=== PATIENT | female | born 1980 | race American Indian/Alaskan Native ===

== ENCOUNTER 2016-10-05 05:29 | Emergency (ER) | payer SELFPAY ==
--- NOTE | 2016-10-05 08:13 | Emergency Department Report ---
HPI - General Chief Complaint: Skin/Abscess/Foreign Body Time Seen by Provider: 10/05/16 07:40 - HPI HPI: Patient is a 35-year-old female who presents to the ED complaining of throat pain and fever like symptoms stuck in her throat. Patient states she was using a pizza around 2:00 PM yesterday when she felt a part of her teeth broke off and swallowed it. Patient states about 2 episodes of vomiting after that to try to get the tooth out. Patient denies fevers/chills/nausea/chest pain/shortness of breath/difficulty breathing/abdominal pain. ED Past Medical Hx - Past Medical History Hx Psychiatric Treatment: Yes (Anxiety) Additional medical history: Morbid Obesity, - Surgical History Past Surgical History?: No - Social History Smoking Status: Current Every Day Smoker Substance Use Type: None - Medications Home Medications: Home Medications Medication Instructions Recorded Confirmed Last Taken Type Ibuprofen [Motrin] 600 mg PO Q8H PRN #20 tablet 10/05/16 Unknown Rx ED Review of Systems ROS: Stated complaint: FOREIGN OBJECT IN THROAT Other details as noted in HPI Constitutional: denies: chills, fever Eyes: denies: eye pain, eye discharge, vision change ENT: throat pain. denies: ear pain, dental pain, hearing loss Respiratory: denies: cough, shortness of breath, wheezing Cardiovascular: denies: chest pain, palpitations Endocrine: no symptoms reported Gastrointestinal: denies: abdominal pain, nausea, diarrhea, constipation Genitourinary: denies: urgency, dysuria, frequency, hematuria, discharge, abnormal menses Musculoskeletal: denies: back pain, joint swelling, arthralgia Skin: denies: rash, lesions Neurological: denies: headache, weakness, numbness, paresthesias, confusion, abnormal gait Psychiatric: denies: anxiety, depression Hematological/Lymphatic: denies: easy bleeding, easy bruising, swollen glands Physical Exam - Physical Exam Vital Signs: Vital Signs 10/05/16 06:05 Temperature 98 F Pulse Rate 101 H Respiratory 16 Rate Blood Pressure 140/67 Blood Pressure 140/67 [Left] O2 Sat by Pulse 100 Oximetry Physical Exam: GENERAL: Alert and oriented x3, no apparent distress, Normal Gait, atraumatic. HEAD: Head is normocephalic and a-traumatic. EYES: Extra ocular muscles are intact. Pupils are equal, round, and reactive to light and accommodation. EARS: symetrical, atraumatic, non tender, ear canal clear and moderate cerumen, tympanic membrance non inflamed. gross auditory nml bilaterally. NOSE: Nose symetrical, Nontender,Nares appeared normal. MOUTH:Mouth is well hydrated and without lesions. Tonsils nonerythematous or swollen, Uvula midline, Tongue not elevated. Mucous membranes are moist. Posterior pharynx clear, no exudate or lesions. Patent airways. No foreign objects visualized and throat. Partially missing tooth #2 no bleeding no gingival edema. NECK: Supple. Non edematous, No carotid bruits. No lymphadenopathy or thyromegaly. LUNGS: Symetrical with respiration, No wheezing, no rales or crackles, CTAB. HEART: S1, S2 present, regular rate and rhythm without murmur, no rubs, no gallops. ABDOMEN: No organomegaly was noted,Positive bowel sounds, soft, and non- distended. . Nontender to palpation on all Quadrants, NO CVA tenderness. EXTREMITIES/MUSCULOSKELETAL: No cyanosis, clubbing, rash, lesions or edema. Full ROM bilaterally. UE/LE Pulses 2+ bilaterally. LE and UE 5+ strength bilaterally NEUROLOGIC: No focal Deficit, Cranial nerves II through XII are grossly intact. No loss of sensation, PSYCHIATRIC: Mood is congruent with affect, denies suicidal or homicidal ideations. SKIN: Warm and dry, No lesions, No ulceration or induration present. ED Course Vital Signs 10/05/16 06:05 Temperature 98 F Pulse Rate 101 H Respiratory 16 Rate Blood Pressure 140/67 Blood Pressure 140/67 [Left] O2 Sat by Pulse 100 Oximetry ED Medical Decision Making - Radiology Data Radiology results: report reviewed, image reviewed FINAL REPORT PROCEDURE: XR NECK SOFT TISSUE TECHNIQUE: AP lateral view soft tissue neck HISTORY: Foreign body in throat. COMPARISON: No prior studies are available for comparison. FINDINGS: No prevertebral soft tissue swelling. Airway appears patent. Hyoid bone and thyroid cartilage. Indeterminate small 2 x 3 millimeter calcification or density seen near the posterior laryngeal area indeterminate as to foreign body versus thyroid cartilage related density seen on lateral view only If symptoms and or concern persists recommend CT scan neck without IV contrast IMPRESSION: As above Transcribed By: WEP Dictated By: DONIS GORDON MD Electronically Authenticated By: DONIS GORDON MD Signed Date/Time: 10/05/16 0858 - Medical Decision Making 34-year-old female presents ingestion of foreign object ED course: X-rays soft tissue of the neck ordered. X-ray shows inconclusive results CT of the neck ordered. CT of the neck shows no acute no foreign body objects in his neck. Discussed findings with patient. Vital signs are stable patient is in no acute or respiratory distress. Airway patent no obstruction seen. Discussed the patient follow up with primary care physician. Discussed with patient that tooth will pass through the GI system and out with stool after bowel movement Patient was able to eat a full breakfast in ED without any problem. Critical care attestation.: If time is entered above; I have spent that time in minutes in the direct care of this critically ill patient, excluding procedure time. ED Disposition Clinical Impression: Broken tooth, Ingestion of foreign body Disposition: DISCHARGED TO HOME OR SELFCARE Is pt being admited?: No Does the pt Need Aspirin: No Condition: Stable Instructions: Foreign Body Ingestion (ED) Prescriptions: Ibuprofen [Motrin] 600 mg PO Q8H PRN #20 tablet PRN Reason: Pain Referrals: PRIMARY CARE, [Primary Care Provider] - 3-5 Days LYNETTE JOSUE MD [Referring] - 3-5 Days OSCAR NEWTON MD [Referring] - 3-5 Days KRISSY CASTELLON MD [Referring] - 3-5 Days Forms: Work/School Release Form(ED) Time of Disposition: 10:32
[2016-10-05] MEDS ORDERED: TORADOL ONE (08:26)
[2016-10-05] MEDS ORDERED: TORADOL IM ONE (08:28)
[2016-10-05] MEDS ORDERED: LIDOCAINE VISCOUS 2% PO ONE (08:52)
--- NOTE | 2016-10-05 09:01 | XRay Report ---
FINAL REPORT PROCEDURE: XR NECK SOFT TISSUE TECHNIQUE: AP lateral view soft tissue neck HISTORY: Foreign body in throat. COMPARISON: No prior studies are available for comparison. FINDINGS: No prevertebral soft tissue swelling. Airway appears patent. Hyoid bone and thyroid cartilage. Indeterminate small 2 x 3 millimeter calcification or density seen near the posterior laryngeal area indeterminate as to foreign body versus thyroid cartilage related density seen on lateral view only If symptoms and or concern persists recommend CT scan neck without IV contrast IMPRESSION: As above
--- NOTE | 2016-10-05 09:38 | Cat Scan Report ---
CT scan soft tissue of neck without IV contrast: History: Feels like something stuck in the throat. Findings: Laryngeal and tracheal air column appears normal. Pre-and paravertebral soft tissue appears normal. No radiopaque foreign body identified. No mass. The vertebral bodies appears unremarkable. Submandibular salivary glands and parotid glands appear normal. No definite evidence of adenopathy. Impression: Essentially unremarkable soft tissue neck.
[2016-10-05 10:59] VITALS: BP 118/80
== END 2016-10-05 10:57 | disposition home or self-care (01) ==
LOC: ED 05:29
DX: S02.5XXA Fracture of tooth (traumatic), initial encounter for closed fracture (principal); T18.9XXA Foreign body of alimentary tract, part unspecified, initial encounter; F17.200 Nicotine dependence, unspecified, uncomplicated; X58.XXXA Exposure to other specified factors, initial encounter; Y93.9 Activity, unspecified; Y92.9 Unspecified place or not applicable; Y99.9 Unspecified external cause status
CPT/HCPCS: 70360; 70490; 96372; 99284; J1885